=== PATIENT | male | born 1970 | race African-American/Black ===

== ENCOUNTER 2023-09-24 09:34 | Emergency (ER) | payer OTHER ==
[~2023-09-24] VITALS: Ht 175.3 cm; Wt 86.2 kg
[2023-09-24] MEDS ORDERED: DEXTROSE 5 %-0.45 % SOD CHLORD 1,000 ML IV STA (10:54)
[2023-09-24] MEDS ORDERED: THIAMINE HCL 100 MG/ML 2 ML VIAL IM STA (10:55)
[2023-09-24] MEDS ORDERED: CLONAZEPAM 1 MG TABLET PO STA (10:55)
[2023-09-24 11:35] LABS: HEMOGLOBIN 13.4 g/dL (13-16.00); MEAN CELL VOLUME 103.2 fL (80.0-100.00); MEAN CORPUSCULAR HEMOGLOBIN 36.3 pg (27.00-32.0); MEAN CORPUSCULAR HGB CONC 35.1 g/dl (32.0-36.0); PLATELET COUNT 225 K/uL (150-450); RED BLOOD COUNT 3.69 M/uL (4.00-6.00); RED CELL DISTRIBUTION WIDTH 16.8 % (11.5-14.5)
[2023-09-24 11:43] LABS: URINE APPEARANCE Clear; URINE BILIRRUBIN Negative (NEGATIVE); URINE BLOOD Negative; URINE COLOR Yellow; URINE GLUCOSE Negative (NEGATIVE); URINE LEUKOCYTE Negative; URINE NITRATE Negative; URINE PROTEIN Negative (NEGATIVE); URINE UROBILINOGEN 0.2 E.U./dl
[2023-09-24 12:00] LABS: BILIRUBIN TOTAL 1.7 mg/dL (0.3-1.2); BILIRUBIN,CONJUGATED 0.65 mg/dL (0.0-0.2); BILIRUBIN,UNCONJUGATED 1.05 mg/dL (0.0-0.6); CALCIUM 8.8 mg/dL (8.5-10.1); CREATININE SERUM 0.74 mg/dL (0.70-1.30); GFR 110.22; POTASSIUM 3.79 mEq/L (3.5-5.1); TOTAL PROTEIN 7.6 gm/dL (6.4-8.2)
[2023-09-24 12:28] LABS: URINE BACTERIA 0 uL (0.0-1933); URINE EPITHELIAL CELLS 0.6 uL (0.0-38.8); URINE RBC 0.5 uL (0.0-20.8); URINE WBC 0.9 uL (0.0-23.2)
[2023-09-24] MEDS ORDERED: 0.9 % SODIUM CHLORIDE 1,000 ML IV STA (13:47)
[2023-09-24] MEDS ORDERED: 0.9 % SODIUM CHLORIDE 1,000 ML IV SCH (18:45)
[2023-09-24] MEDS ORDERED: LORazepam 2 MG/ML VIAL IV PUSH PRN (18:45)
[2023-09-24] MEDS ORDERED: CEFTRIAXONE SODIUM 1,000 MG VIAL IV SCH (21:00)
[2023-09-25] MEDS ORDERED: CHLORDIAZEPOXIDE HCL 25 MG CAPSULE PO SCH
== END 2023-09-24 21:13 | disposition left against medical advice (07) ==
LOC: ER 09:34 → MEDI 20:06 → SEC-K 21:03 → ER 21:13 → SEC-K 21:13
PROVIDERS: General Practice
DX: F10.239 Alcohol dependence with withdrawal, unspecified (principal); F10.229 Alcohol dependence with intoxication, unspecified; E87.1 Hypo-osmolality and hyponatremia; R42 Dizziness and giddiness; R53.1 Weakness; Z20.822 Contact with and (suspected) exposure to COVID-19